=== PATIENT | male | born 1990 | race Caucasian/White ===

== ENCOUNTER 2024-11-29 11:09 | Emergency (ER) | payer BC, SELFPAY ==
[2024-11-29] VITALS (18 sets, daily range): BP systolic 121–138; BP diastolic 85–92; PULSE 56–76; TEMP 36.4; O2SAT 98; BMI 27.8
--- NOTE | 2024-11-29 11:29 | ECG_ITS ---
[facility] Test Date: 2024-11-29 Pat Name: DAVIS ABEL Department: Room: - Gender: Male [employer] Operator: : 1990 Requested By: Order Number: [id number] Reading MD: VARGAS HADLEY Measurements Intervals [place] Rate: 58 P: 49 TX: 162 QRS: 49 QRSD: 96 T: 28 QT: 426 QTc: 422 Interpretive Statements 1100 Sinus rhythm 9110 normal ECG No previous ECG available for comparison Electronically Signed On 11-29-2024 16:40:46 EDT by VARGAS HADLEY
--- NOTE | 2024-11-29 11:40 | XR_ITS ---
[facility] [place] [id number] Patient Name: DAVIS ABEL MRN: [id number] date: 1990 Sex: M Assigned Patient Location: ED.MAIN Current Patient Location: ED.MAIN Accession/Order Number: [id number] Exam Date: 11/29/2024 12:01 Report Date: 11/29/2024 12:02 At the request of: JUAN PABLO CASTLE MD Procedure: XR chest 1V PA CHEST: CLINICAL HISTORY: cp COMPARISON: None The heart is normal in size. The lungs are clear. The pulmonary vasculature is normal. Mediastinum and hilar regions are unremarkable. No pleural effusions are seen. Visualized bones are intact. XR/XR chest 1V IMPRESSION: Negative acute pleural-parenchymal disease. Impression dictated by: Dain Arguello M.D. 11/29/2024 12:02 PM Dictation Location: [place] [address] Electronically authenticated by: [id number] Y Date: 11/29/2024 12:02
[2024-11-29 11:41] LABS: Hematocrit 41.4 % (42.0-54.0); Hemoglobin 14.3 g/dL (14.0-18.0); Immature Granulocytes Abs Auto 0.02 10^3/uL (0.00-0.03); Immature Granulocytes Pct Auto 0.3 % (0.0-0.5); Lymphocytes Absolute Auto 1.8 10^3/uL (1.2-3.8); Mean Corpuscular HGB Conc 34.5 g/dL (29.9-35.2); Mean Corpuscular Hemoglobin 28.1 pg (25.9-34.0); Mean Corpuscular Volume 81.5 fL (80.0-94.0); Platelet Count 274 10^3/uL (150-450); Red Blood Count 5.08 10^6/uL (4.70-6.10); White Blood Count 7.8 10^3/uL (4.0-11.0)
--- NOTE | 2024-11-29 11:50 | ED.GENADUL1 ---
HPI HPI - General Adult General Chief complaint: Shortness of Breath/Dyspnea Stated complaint: CHEST TIGHNESS NUMBNESS IN HANDS SOB Time Seen by Provider: 11/29/24 11:15 Source: patient Mode of arrival: walk-in Limitations: no limitations History of Present Illness HPI narrative: The patient is a 34-year-old male, he have a history of anxiety and hypertension as well as acid reflux, no history of smoking cigarettes The patient is coming to the ER with a chest pain that has been going on for the last 3 weeks exacerbated over the last few hours with a chest pressure and numbness in his fingers in both sides The patient mentioned that the chest pain that has been going on for the last 3 weeks it is not continuous but it comes usually for few seconds and stretching like and it has no relation to any position or taking a deep breath The patient have no cough no fever no preceding symptoms of viral illness and the patient have no nausea vomiting or any abdominal pain The patient did not try [id number] medication The patient also mentioned that he have a family history of his father dying at the age of 50s due to cardiac event The patient mentioned that today he started having some chest pressure and he feels numb in both fingers not too weak and there is no radiation of the pain Related Data Home Medications ?Medication ?Instructions ?Recorded ?Confirmed bupropion HCl 150 mg 24 hr tablet, 150 mg PO DAILY 11/29/24 11/29/24 extended release celecoxib 200 mg capsule 200 mg PO DAILY 11/29/24 11/29/24 gabapentin 600 mg tablet 600 mg PO DAILY 11/29/24 11/29/24 omeprazole 20 mg capsule,delayed 20 mg PO DAILY 11/29/24 11/29/24 release Held on 11/29/24. Instructions: Resume on 12/30/24. hold Previous Rx's ?Medication ?Instructions ?Recorded pantoprazole 40 mg tablet,delayed 40 mg PO QAM #30 tabs 11/29/24 release (Protonix) Allergies Allergy/AdvReac Type Severity Reaction Status Date / Time No Known Drug Allergies Allergy Verified 11/29/24 11:29 Opioid HPI Opioid Management Most Recent Opioid Data: Last Pain Scale 7 Today, 11:38 Review of Systems ROS Status of ROS 10 or more systems reviewed and unremarkable except as noted in history and below PFSH PFSH Social History Little interest or pleasure in doing things: not at all Feeling down, depressed, or hopeless: not at all Exam Narrative Exam Narrative: Nurses notes and vital signs reviewed and patient is not hypoxic. General: Well-appearing and in no apparent distress. Skin: Warm, dry, no pallor noted. No rash. Head: Normocephalic, atraumatic. Neck: Supple, non-tender. Cardiovascular: Regular Rate and Rhythm without murmur, gallop or rub. Respiratory: No accessory muscle use or respiratory distress. Lungs are clear to auscultation, no wheezing, rales or rhonchi Chest Wall: no tenderness Back: No midline thoracic or lumbar vertebral tenderness. No CVA tenderness Musculoskeletal: normal ROM, no calf or popliteal tenderness, no lower extremity edema/swelling GI: Abdomen is soft, non-distended. Normal bowel sounds. No masses appreciated. No tenderness to palpation. No rebound, guarding, or rigidity noted. Neurological: A&O x4. No cranial nerve dysfunction observed. No truncal ataxia. Moves all extremities. Sensation intact. Psychiatric: Cooperative and interactive. Normal mood and affect. Constitutional Vital Signs, click to edit/add: Last Vital Signs Temp 97.5 F L 11/29/24 11:16 Pulse 56 L 11/29/24 12:50 Resp 17 11/29/24 12:50 BP 138/86 11/29/24 12:30 Pulse Ox 98 11/29/24 11:20 O2 Del Method Room Air 11/29/24 11:16 Course Vital Signs Vital signs: Vital Signs Temperature 97.5 F L 11/29/24 11:16 Pulse Rate 61 11/29/24 11:16 Respiratory Rate 15 11/29/24 11:16 Blood Pressure 131/87 11/29/24 11:16 Pulse Oximetry 98 11/29/24 11:16 Oxygen Delivery Method Room Air 11/29/24 11:16 Temperature 97.5 F L 11/29/24 11:16 Pulse Rate 56 L 11/29/24 12:50 Respiratory Rate 17 11/29/24 12:50 Blood Pressure 138/86 11/29/24 12:30 Pulse Oximetry 98 11/29/24 11:20 Oxygen Delivery Method Room Air 11/29/24 11:16 Medical Decision Making [facility] Narrative Medical decision making narrative: The patient EKG showing sinus rhythm with a heart rate of [address] elevation or depression The patient chest x-ray showed no acute pathology CBC and chemistry showed no acute pathology as well and the patient D-dimer is negative and troponin is negative The patient provided with Zofran for nausea in addition to Toradol and Pepcid as well Right now we will increase the patient Protonix to 40 daily instead of 20 mg The patient to continue using Tylenol for pain care as needed and follow-up with his primary care doctor as outpatient is presenting symptoms of pain could be secondary to atypical chest pain mostly pleuritic and also could be secondary to acid reflux The patient is to follow up with primary care physician in next 2-3 days or to return to the emergency department should any of the signs or symptoms worsen or new symptoms develop. The patient agrees with the following Diagnosis and Treatment plan and the patient will be discharged home. Lab Data Labs: Lab Results 11/29/24 Range/Units 11:28 WBC 7.8 (4.0-11.0) 10^3/uL RBC 5.08 (4.70-6.10) 10^6/uL Hgb 14.3 (14.0-18.0) g/dL Hct 41.4 L (42.0-54.0) % MCV 81.5 (80.0-94.0) fL MCH 28.1 (25.9-34.0) pg MCHC 34.5 (29.9-35.2) g/dL RDW 12.4 (11.0-15.0) % Plt Count 274 (150-450) 10^3/uL MPV 9.4 L (9.5-13.5) fL Neut % (Auto) 66.0 (43.0-75.0) % Lymph % (Auto) 23.4 (20.5-60.0) % Bates % (Auto) 7.7 (1.7-12.0) % Eos % (Auto) 2.2 (0.9-7.0) % Baso % (Auto) 0.4 (0.2-2.0) % Neut # (Auto) 5.1 (1.4-6.5) 10^3/uL Lymph # (Auto) 1.8 (1.2-3.8) 10^3/uL Bates # (Auto) 0.6 (0.3-0.8) 10^3/uL Eos # (Auto) 0.2 (0.0-0.7) 10^3/uL Baso # (Auto) 0.0 (0.0-0.1) 10^3/uL Abs Immat Gran (auto) 0.02 (0.00-0.03) 10^3/uL Imm/Tot Granulo (auto) 0.3 (0.0-0.5) % D-Dimer 0.27 (<=0.59) mg/L FEU Sodium 140 (136-145) mmol/L Potassium 3.8 (3.5-5.1) mmol/L Chloride 104 (98-107) mmol/L Carbon Dioxide 28.7 (21.0-32.0) mmol/L Anion Gap 11.1 BUN 14.0 (7.0-18.0) mg/dL Creatinine 0.91 (0.70-1.30) mg/dL Est GFR ( Amer) >60 (>=60 mL/min/1.73m^2) Est GFR (Non-Af Amer) >60 (>=60 mL/min/1.73m^2) BUN/Creatinine Ratio 15.4 Glucose 122 H (74-106) mg/dL Calcium 9.3 (8.5-10.1) mg/dL Total Bilirubin 0.4 (0.2-1.0) mg/dL AST 38 H (15-37) U/L ALT 62 (16-63) U/L Alkaline Phosphatase 60 (46-116) U/L Troponin I High Sens 4.7 (4.0-76.1) pg/mL Total Protein 7.5 (6.4-8.2) g/dL Albumin 3.9 (3.4-5.0) g/dL Globulin 3.6 g/dL Albumin/Globulin Ratio 1.1 Discharge Plan Discharge Chief Complaint: Shortness of Breath/Dyspnea Clinical Impression: Atypical chest pain, GERD (gastroesophageal reflux disease) Patient Disposition: Home, Self-Care Time of Disposition Decision: 13:04 Condition: Good Prescriptions / Home Meds: New pantoprazole [Protonix] 40 mg tablet,delayed release (DR/EC) 40 mg PO QAM Qty: 30 0RF Held omeprazole 20 mg capsule,delayed release(DR/EC) 20 mg PO DAILY Hold Instructions: Resume on 12/30/24. hold No Action bupropion HCl 150 mg tablet extended release 24 hr 150 mg PO DAILY celecoxib 200 mg capsule 200 mg PO DAILY gabapentin 600 mg tablet 600 mg PO DAILY Print Language: Malay Instructions: Chest Pain (ED), GERD (Gastroesophageal Reflux Disease) (DC) Referrals: Physician,Non-Staff, MD [Primary Care Provider] - 1 week
[2024-11-29] MEDS: KETOROLAC TROMETHAMINE 30 MG/ML VIAL 15 MG IVP (11:52)
[2024-11-29] MEDS: FAMOTIDINE/PF 20 MG/2 ML VIAL IV (11:52)
[2024-11-29 12:04] LABS: Alanine Aminotransferase 62 U/L (16-63); Albumin Globulin Ratio 1.1; Albumin Level 3.9 g/dL (3.4-5.0); Alkaline Phosphatase 60 U/L (46-116); Anion Gap 11.1; Aspartate Amino Transferase 38 U/L (15-37); Blood Urea Nitrogen 14.0 mg/dL (7.0-18.0); Calcium 9.3 mg/dL (8.5-10.1); Carbon Dioxide 28.7 mmol/L (21.0-32.0); Chloride 104 mmol/L (98-107); Estimated GFR (African America >60 (>=60 mL/min/1.73m^2); Estimated GFR (Non-African Ame >60 (>=60 mL/min/1.73m^2); Globulin 3.6 g/dL; Glucose 122 mg/dL (74-106); Potassium 3.8 mmol/L (3.5-5.1); Sodium 140 mmol/L (136-145); Total Protein 7.5 g/dL (6.4-8.2)
== END 2024-11-29 13:14 | disposition home or self-care (01) ==
PROVIDERS: Emergency Provider Emergency Medicine
DX: R07.89 Other chest pain (principal); K21.9 Gastro-esophageal reflux disease without esophagitis; F41.9 Anxiety disorder, unspecified; I10 Essential (primary) hypertension
CPT/HCPCS: 36415; 71045; 80053; 84484; 85025; 85378; 93005; 96374; 96375; 99285; J1885; J2405; J3490